=== PATIENT | female | born 1950 | race Caucasian/White ===

== ENCOUNTER → 2018-11-24 12:10 | Outpatient (CLI) | payer MEDICARE, OTHER, SELFPAY | PROVIDERS: Family Provider Family Medicine; PCP Family Medicine; Visit Provider Physician Assistant | DX: Z87.440 Personal history of urinary (tract) infections (principal) | CPT/HCPCS: 87086 ==

== ENCOUNTER 2018-11-29 16:10 | Emergency (ER) | payer MEDICARE, OTHER, SELFPAY ==
[2018-11-29 16:12] VITALS: BP 153/101; PULSE 71; RESP 16; TEMP 36.4; O2SAT 100; BMI 27.3
[2018-11-29] MEDS: ACETAMINOPHEN 325 MG TABLET 650 MG PO (16:30)
[2018-11-29] MEDS: methylPREDNISolone 125 MG/2 ML VIAL IV (16:42)
[2018-11-29] MEDS: FAMOTIDINE 20 MG/50 ML PIGGYBACK 200 MG IV (16:42)
[2018-11-29 17:00] VITALS: BP 156/64; PULSE 61; O2SAT 100
[2018-11-29 18:00] VITALS: BP 145/69; PULSE 61; RESP 16; O2SAT 100
--- NOTE | 2018-11-29 20:52 | ED.ALLEREA ---
HPI - Allergic Reaction <GRANT Christiansen - Last Filed: 11/29/18 21:32> General Chief complaint: Allergic Reaction Stated complaint: BEE STING Time Seen by Provider: 11/29/18 16:16 Source: patient Mode of arrival: ambulatory Limitations: no limitations History of Present Illness HPI narrative: This is a 67 year old female, nonsmoker, presents to ED with significant other with chief complaint of bee sting allergy. The patient reports she had an anaphylactic reaction to bee sting about 25 years ago. She had stung by a bee on left neck/upper chest area 20 minutes prior to arriving ED. She had ice pack on affected site when she arrived to ED. She denies chest pain, dyspnea, oropharyngeal edema, feeling faint, short of breath, nausea/vomiting, rash or itching. She complained of 6/10 sharp discomfort on left neck and chest area. She reports the area of the bee sting was scraped with a credit card in attempts to remove this stinger. She reports had a hornet stone on bilateral upper leg about a month ago and this caused a significant swelling. She was advised by her primary care provider that if she ever gets bee stings again, she will need to seek an emergency evaluation and treatment. She is known to have multiple allergies to medications and topical products as well and her allergy list was updated today in EMR. Related Data Home Medications Medication Instructions Recorded Confirmed amlodipine 5 mg tablet 5 mg PO DAILY 11/24/18 11/29/18 ciclesonide HFA 160 mcg/actuation 1 puff INHALATION BID 11/24/18 11/29/18 aerosol inhaler estradiol 10 mcg vaginal tablet 10 mcg VAG 2XW 11/24/18 11/29/18 levothyroxine 125 mcg tablet 125 mcg PO DAILY 11/24/18 11/29/18 omeprazole 20 mg capsule,delayed 20 mg PO DAILY 11/24/18 11/29/18 release spironolactone 25 mg tablet 25 mg PO DAILY tab 11/24/18 11/29/18 Bentyl 20 mg PO PRN PRN 11/29/18 11/29/18 ENDOGENX Of Life Women's +40 1 tab PO DAILY 11/29/18 11/29/18 [place] Vitamin D3 1,000 unit PO DAILY 11/29/18 11/29/[address] Cranrx 500 mg PO DAILY 11/29/18 11/29/18 [place] Naturals 2 tab PO DAILY 11/29/18 11/29/18 Proctocol Ortho Dophilus 2 tab PO DAILY 11/29/18 11/29/18 Solaray Calcium Magnesium Zinc 2 tab PO DAILY 11/29/18 11/29/18 Solellie B-Mikael B Stress 1 tab PO DAILY 11/29/18 11/29/18 Source Naturals C-B-R Vit C 500 mg PO DAILY 11/29/18 11/29/18 albuterol sulfate [Proventil HFA] 1 puff INHALATION PRN PRN 11/29/18 11/29/18 azelaic acid 1 applic TOPICAL BID 11/29/18 11/29/18 cetirizine [Zyrtec] 10 mg PO DAILY PRN 11/29/18 11/29/18 clindamycin phosphate 1 applic TOPICAL DIRECTED 11/29/18 11/29/18 clocortolone pivalate 1 applic TOPICAL PRN PRN 11/29/18 11/29/18 epinephrine [EpiPen] 0.3 mg IM PRN PRN 11/29/18 11/29/18 fexofenadine [Jaki Allergy] 1 tab PO PRN PRN 11/29/18 11/29/18 ipratropium bromide 1 spray INTRANASAL BID 11/29/18 11/29/18 montelukast 10 mg PO QPM PRN 11/29/18 11/29/18 pimecrolimus [Elidel] 1 applic TOPICAL BID 11/29/18 11/29/18 polyethylene glycol 3350 17 g PO PRN PRN 11/29/18 11/29/18 Previous Rx's Medication Instructions Recorded Flovent HFA 1 puff INH BID #1 inh 04/14/16 prednisone 20 mg PO BID 5 Days #10 tab 11/29/18 ranitidine HCl [Zantac] 150 mg PO DAILY #7 tab 11/29/18 Allergies Allergy/AdvReac Type Severity Reaction Status Date / Time prochlorperazine Allergy Severe Anaphylaxis Verified 11/29/18 17:51 [PROCHLORPERAZINE] Morpholine Analogues Allergy Intermediate Hives Verified 11/29/18 17:51 Sulfa (Sulfonamide Allergy Intermediate Rash Verified 11/29/18 17:51 Antibiotics) atorvastatin [ATORVASTATIN] Allergy Unknown Verified 11/24/18 12:04 clarithromycin Allergy Unknown Verified 11/24/18 12:04 [CLARITHROMYCIN] clindamycin [CLINDAMYCIN] Allergy Unknown Verified 11/24/18 12:04 codeine [CODEINE] Allergy Unknown Verified 11/24/18 12:04 diphenhydramine Allergy Unknown Verified 11/24/18 12:04 [DIPHENHYDRAMINE] diphtheria,tetanus,poliomyelitis Allergy Unknown Verified 11/24/18 12:04 va [DIP,TET,POLIO VACCINE] ezetimibe [EZETIMIBE] Allergy Unknown Verified 11/24/18 12:04 lansoprazole [LANSOPRAZOLE] Allergy Unknown Verified 11/24/18 12:04 montelukast [MONTELUKAST] Allergy Unknown Verified 11/24/18 12:04 morphine [MORPHINE] Allergy Unknown Verified 11/24/18 12:04 nitrofurantoin Allergy Unknown Verified 11/24/18 12:04 [NITROFURANTOIN] phenazopyridine Allergy Unknown Verified 11/24/18 12:04 [PHENAZOPYRIDINE] pravastatin [PRAVASTATIN] Allergy Unknown Verified 11/24/18 12:04 Tetanus Vaccines and Toxoid Allergy Unknown Verified 11/24/18 12:04 [TETANUS VACCINES & TOXOID] enalapril Allergy Verified 11/29/18 16:22 hydrochlorothiazide Allergy Verified 11/29/18 16:22 indapamide Allergy Verified 11/29/18 16:22 methylchloroisothiazolinone Allergy Verified 11/29/18 16:22 methylisothiazolinone Allergy Verified 11/29/18 16:22 neomycin Allergy Verified 11/29/18 16:22 spironolactone Allergy Verified 11/29/18 16:22 Review of Systems <GRANT Christiansen - Last Filed: 11/29/18 21:32> Review of Systems General: Denies fever, chills, fatigue, malaise, sweats. HEENT: Denies sinus pain, ear pain, sore throat, difficulty swallowing, dizziness. Respiratory: See HPI Cardiovascular: See HPI Gastrointestinal: See HPI : Denies dysuria, frequency, incontinence, hematuria, urinary retention. Musculoskeletal: Denies weakness, joint pain or bony pain. Skin: She HPI Neurologic: Denies weakness, headache, numbness, change in speech, confusion, seizures, incoordination. Psychiatric: No concerning psychosocial issues. 12-point review of systems is negative except for those stated above. PFSH <GRANT Christiansen - Last Filed: 11/29/18 21:32> Medical History HTN (hypertension) (Acute) Hypothyroidism (Acute) Surgical History History of carpal tunnel repair History of tonsillectomy History of total mastectomy Status post appendectomy Status post breast lumpectomy Status post delivery Status post hysterectomy Social History Smoking Status: Never smoker Social History Smoking Status: Never smoker Exam <GRANT Christiansen - Last Filed: 11/29/18 21:32> Narrative Exam Narrative: GEN: Alert, oriented x 3, well appearing and nourished, and in no acute distress. Head: Normal cephalic, atraumatic. No scalp or temporal tenderness, palpable mass or rash. EYES: Pupils are equal, round, and reactive to light and accommodation. Extraocular muscles are intact bilaterally. There is no subconjunctival hemorrhage, exudate and sclera non-icteric. ENT: Mucous membrane moist, no mucosal lesion. Throat without erythema, tonsillar hypertrophy or exudate. Uvula in midline, no edema, airway patent. Neck: Trachea in midline. No JVD, non-tender without lymphadenopathy. No masses or thyroid megaly. Supple, non-tender and no meningeal signs. CARDIAC: Normal regular rate and rhythm without murmurs, gallops, or rubs. No chest wall tenderness. No peripheral edema, cyanosis or pallor. Capillary refill is less than 2 seconds. RESPIRATORY: Lungs are cleat to auscultate bilaterally. No cough, wheezes, rales, or rhonchi. No stridor, respiratory distress, increase work of breathing, or accessary muscle used. ABD: Abdomen soft, nontender and non-distended. No guarding or rebound tenderness to palpate. Bowel sounds are normal in all 4 quadrants. There is no palpable masses or organomegaly. EXT: Full painless ROM of all extremities with no loss of sensation, strength, effusion or edema. SKIN: Warm, dry, normal color for patient. No erythema, lesions or rash. No bee stinger was viewed. NEUROLOGICAL: Alert and oriented to place, time and person. Sensation and motor function intact bilaterally. No facial droops, dysphasia. PSYCHIATRIC: Good judgement and reason, without hallucinations, abnormal affect or abnormal behaviors during the examination. Initial Vital Signs Initial Vital Signs: Vital Signs Temperature 97.5 F L 11/29/18 16:12 Pulse Rate 71 11/29/18 16:12 Respiratory Rate 16 11/29/18 16:12 Blood Pressure 153/101 H 11/29/18 16:12 Pulse Oximetry 100 11/29/18 16:12 <Mayo Ontiveros DO - Last Filed: 11/30/18 19:25> Initial Vital Signs Initial Vital Signs: Vital Signs Temperature 97.5 F L 11/29/18 16:12 Pulse Rate 71 11/29/18 16:12 Respiratory Rate 16 11/29/18 16:12 Blood Pressure 153/101 H 11/29/18 16:12 Pulse Oximetry 100 11/29/18 16:12 Course <GRANT Christiansen - Last Filed: 11/29/18 21:32> Orders Ordered: Discontinued Medications Acetaminophen (Tylenol) 650 mg PO NOW ONE Stop: 11/29/18 16:29 Last Admin: 11/29/18 16:30 Dose: 650 mg Acetaminophen (Tylenol) 650 mg PO NOW ONE Stop: 11/29/18 17:13 Last Admin: 11/29/18 17:17 Dose: Not Given Famotidine (Pepcid) 20 mg in 50 mls @ 200 mls/hr IV NOW ONE Stop: 11/29/18 16:43 Last Infusion: 11/29/18 16:57 Dose: 0 mls/hr Admin: 11/29/18 16:42 Dose: 200 mls/hr Methylprednisolone (Solu-Medrol 125 Mg Vial) 125 mg IV NOW ONE Stop: 11/29/18 16:29 Last Admin: 11/29/18 16:42 Dose: 125 mg Vital Signs - 8 hr 11/29/18 16:12 11/29/18 17:00 11/29/18 18:00 Temperature 97.5 F L Pulse Rate 71 61 61 Respiratory Rate 16 16 Blood Pressure 153/101 H Blood Pressure [Left Arm] 156/64 H 145/69 H Pulse Oximetry 100 100 100 <Mayo Ontiveros DO - Last Filed: 11/30/18 19:25> Orders Ordered: Discontinued Medications Acetaminophen (Tylenol) 650 mg PO NOW ONE Stop: 11/29/18 16:29 Last Admin: 11/29/18 16:30 Dose: 650 mg Acetaminophen (Tylenol) 650 mg PO NOW ONE Stop: 11/29/18 17:13 Last Admin: 11/29/18 17:17 Dose: Not Given Famotidine (Pepcid) 20 mg in 50 mls @ 200 mls/hr IV NOW ONE Stop: 11/29/18 16:43 Last Infusion: 11/29/18 16:57 Dose: 0 mls/hr Admin: 11/29/18 16:42 Dose: 200 mls/hr Methylprednisolone (Solu-Medrol 125 Mg Vial) 125 mg IV NOW ONE Stop: 11/29/18 16:29 Last Admin: 11/29/18 16:42 Dose: 125 mg Vital Signs - 8 hr 11/29/18 16:12 11/29/18 17:00 11/29/18 18:00 Temperature 97.5 F L Pulse Rate 71 61 61 Respiratory Rate 16 16 Blood Pressure 153/101 H Blood Pressure [Left Arm] 156/64 H 145/69 H Pulse Oximetry 100 100 100 [facility] - Allergic Reaction <GRANT Christiansen - Last Filed: 11/29/18 21:32> Differential Diagnosis Differential diagnosis: Likely anaphylaxis and allergic reaction Medical Records Attestation: I reviewed the patient's medical records. [facility] Narrative Medical decision making narrative: This is a 67-year-old female who had a stung by a bee on her left neck/chest area about 20 minutes ago before coming into the. Reports has some anaphylactic allergic reaction to bee sting 20 years ago. She has multiple allergies to medications including Benadryl and topical products. Usually she develops allergy reactions 1 hour after the exposures. She did not endorse any allergy symptoms when she arrived in ED but localized discomfort. Patient was medicated with IV Solu-Medrol 125 mg and Pepcid 20 mg given her past allergy histories. She also was medicated with Tylenol under 975 mg for discomfort and continued to use ice pack. She had taken Jaki after the bee stung. She was monitored for at least 2 hours in ED without exhibiting any allergy symptoms or signs. I reviewed return precautions including severe allergy symptoms with patient. She was discharged to home with 5 day course of prednisone and Zantac in addition to her allergy pill. No further questions and expressed that this time. The patient and significant other agreed to treatment plan. Discharge Plan Departure Patient Disposition: Home Clinical Impression: Allergic reaction Qualifiers: Encounter type: initial encounter Qualified Code(s): T78.40XA - Allergy, unspecified, initial encounter Discharge Date/Time: 11/29/18 18:31 Interventions: ED Discharge Assessment Last Done: 11/29/18 18:30 Instructions: DI for Anaphylaxis Activity Restrictions/Additional Instructions: You have been diagnosed with [bee sting allergic reaction and history of anaphylactic allergy ]. What to do: *Take your medications as directed. The prednisone can bring her blood sugar elevated could upset her stomach. *Follow up with your primary care provider in 2-3 days, call for an appointment. Let them know you were seen in the ED and that we asked you to be seen in follow up. *Return to ED if you have any new, worsening, or concerning symptoms, such as [swelling to her lips, throat, tongue, difficulty breathing, chest pain, short of breath, nausea/vomiting, fainting]. Prescriptions: New prednisone 20 mg tablet 20 mg PO BID 5 Days Qty: 10 RF: 0 ranitidine HCl [Zantac] 150 mg tablet 150 mg PO DAILY Qty: 7 RF: 0 No Action levothyroxine [Synthroid] 125 mcg tablet 125 mcg PO DAILY RF: 0 amlodipine 5 mg tablet 5 mg PO DAILY RF: 0 spironolactone 25 mg tablet 25 mg PO DAILY RF: 0 omeprazole 20 mg capsule,delayed release(DR/EC) 20 mg PO DAILY RF: 0 [place] 160 mcg/actuation HFA aerosol inhaler 1 puff INHALATION BID RF: 0 estradiol [Yuvafem] 10 mcg tablet 10 mcg VAG 2XW RF: 0 Flovent HFA 12 GM HFA aerosol inhaler 1 puff INH BID Qty: 1 RF: 1 albuterol sulfate [Proventil HFA] 90 mcg/actuation Hfa Aerosol Inhaler 1 puff INHALATION PRN PRN (Reason: Shortness Of Breath) RF: 0 clindamycin phosphate 1 % Solution 1 applic TOPICAL DIRECTED RF: 0 azelaic acid 15 % Gel 1 applic topical BID RF: 0 polyethylene glycol 3350 17 gram Powder In Packet 17 g PO PRN PRN (Reason: Constipation) RF: 0 Bentyl 20 mg 20 mg PO PRN PRN (Reason: IBS) RF: 0 [place] [employer] [place] Women's +40 1 tab PO DAILY RF: 0 [place] Vitamin D3 1,000 unit 1,000 unit PO DAILY RF: [address] Cranrx 500 mg 500 mg PO DAILY RF: 0 [place] Naturals 2 tab PO DAILY RF: 0 Proctocol Ortho Dophilus 2 tab PO DAILY RF: 0 Solaray Calcium Magnesium Zinc 1,000 mg 2 tab PO DAILY RF: 0 [place] B-Mikael B Stress 1 tab PO DAILY RF: 0 Source Naturals C-B-R Vit C 500 mg 500 mg PO DAILY RF: 0 ipratropium bromide 0.03 % [place],Non-Aerosol 1 spray intranasal BID RF: 0 fexofenadine [Jaki Allergy] 60 mg Tablet 1 tab PO PRN PRN (Reason: Allergy Symptoms) RF: 0 cetirizine [Zyrtec] 10 mg Tablet 10 mg PO DAILY PRN (Reason: Allergy Symptoms) RF: 0 pimecrolimus [Elidel] 1 % Cream 1 applic TOPICAL BID RF: 0 clocortolone pivalate 0.1 % Cream 1 applic TOPICAL PRN PRN (Reason: bug bites) RF: 0 montelukast 10 mg Tablet 10 mg PO QPM PRN (Reason: Allergy Symptoms) RF: 0 epinephrine [EpiPen] 0.3 mg/0.3 mL Auto-Injector 0.3 mg IM PRN PRN (Reason: Allergic Reaction) RF: 0 Referrals: Gifty Bazan DO [Primary Care Provider] - <Mayo Ontiveros DO - Last Filed: 11/30/18 19:25> Cosign ED Attending Cosleonelature Attestation: I was available for consultation during this patient's emergency department encounter
== END 2018-11-29 18:31 | disposition home or self-care (01) ==
PROVIDERS: Emergency Provider Nurse Practitioner Family; Family Provider Family Medicine; PCP Family Medicine
DX: T63.441A Toxic effect of venom of bees, accidental (unintentional), initial encounter (principal)
CPT/HCPCS: 96374; 96375; 99283; 99284; J2930

== ENCOUNTER → 2019-03-20 14:57 | Outpatient (CLI) | payer MEDICARE, OTHER, SELFPAY | PROVIDERS: Family Provider Family Medicine; PCP Family Medicine; Visit Provider Nurse Practitioner | DX: R30.0 Dysuria (principal) | CPT/HCPCS: 87077; 87086; 87186 ==

== ENCOUNTER → 2021-04-14 12:02 | Outpatient (CLI) | payer MEDICARE, OTHER, SELFPAY ==
--- NOTE | 2021-04-14 12:06 | DI.RAD.S_ITS ---
PROCEDURE: XR TOE LT MIN 2V INDICATIONS: painful, swollen fourth toe TECHNIQUE: 3 views of the left toe(s) acquired. COMPARISON: None. FINDINGS: Bones: No fractures or dislocations. No suspicious bony lesions. Generalized decrease in osseous mineralization noted. 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 Calcaneal posterior and plantar spurs present. Soft tissues: No suspicious soft tissue densities. IMPRESSION: Soft tissue swelling without fracture or foreign body involving the 4th toe. Degenerative changes Approved by: Andrea Orozco M.D. on 04/14/2021 at 11:54
== END ==
PROVIDERS: Family Provider Family Medicine; PCP Family Medicine; Referring Provider Physician Assistant; Visit Provider Physician Assistant
DX: M79.675 Pain in left toe(s) (principal); M77.32 Calcaneal spur, left foot; M79.89 Other specified soft tissue disorders
CPT/HCPCS: 73660

== ENCOUNTER 2023-02-27 09:31 | Emergency (ER) | payer MEDICARE, OTHER, SELFPAY ==
[2023-02-27 09:40] VITALS: BP 195/78; PULSE 63; RESP 18; TEMP 36.7; O2SAT 99
[2023-02-27 09:46] VITALS: PULSE 69; O2SAT 98
[2023-02-27 09:47] VITALS: BP 195/78; PULSE 66; O2SAT 98
--- NOTE | 2023-02-27 09:51 | DI.RAD.S_ITS ---
PROCEDURE: XR KNEE LT 3V INDICATIONS: injury TECHNIQUE: 3 views of the knee were acquired. COMPARISON: None. FINDINGS: Bones: No fractures or dislocations. No suspicious bony lesions. Mild tricompartmental periarticular osteophyte formation. Soft tissues: No joint effusion. No suspicious soft tissue calcifications. IMPRESSION: Osteoarthritis. No acute fracture. No osseous lesion. If symptoms and/or clinical suspicion for pathology persist, further assessment with repeat, or advanced imaging (e.g., CT, MRI, or bone scan) may be helpful for further assessment. Dictated by: Ana Mccullough M.D. on 02/27/2023 at 10:09 Approved by: Ana Mccullough M.D. on 02/27/2023 at 10:09
[2023-02-27 10:00] VITALS: PULSE 61; O2SAT 98
[2023-02-27 10:30] VITALS: PULSE 60; O2SAT 97
--- NOTE | 2023-02-27 10:57 | ED.LOWEXIN ---
HPI - Extremity Injury (Lower) General Chief Complaint: Extremity Injury, Lower Stated Complaint: fell ysterday hurt RT foot & arm/LT knee Time Seen by Provider: 02/27/23 10:21 Source: patient and family Mode of arrival: Family Vehicle History of Present Illness HPI Narrative: Patient 72-year-old female history of multiple allergies hypertension presenting after mechanical ground level fall yesterday. Reports that she was wearing her bifocals in the garden she went to take a step when she tripped. She is really having significant left knee pain. She is able to bear weight but she reports that she can not bend it. She is got some pain in her right ankle and pain on her elbow as well. She is not hit her head or lose consciousness. She is not on antiplatelet or anticoagulation medication. She has multiple allergies and takes Tylenol only for pain. Related Data Home Medications Medication Instructions Recorded Confirmed amlodipine 5 mg tablet 5 mg PO DAILY 11/24/18 02/10/22 ciclesonide 160 mcg/actuation 1 puff inhalation BID 11/24/18 02/10/22 aerosol inhaler (Alvesco) estradiol 10 mcg vaginal tablet 10 mcg vaginal 2XW 11/24/18 02/10/22 (Yuvafem) levothyroxine 125 mcg tablet 125 mcg PO DAILY 11/24/18 02/10/22 (Synthroid) omeprazole 20 mg capsule,delayed 20 mg PO DAILY 11/24/18 02/10/22 release spironolactone 25 mg tablet 25 mg PO DAILY 11/24/18 02/10/22 Bentyl 20 mg PO PRN PRN IBS 11/29/18 02/10/22 [employer] Women's +40 1 tab PO DAILY 11/29/18 02/10/22 [place] Vitamin D3 1,000 unit PO DAILY 11/29/18 02/10/[address] Cranrx 500 mg PO DAILY 11/29/18 02/10/22 Hernandez Naturals 2 tab PO DAILY 11/29/18 02/10/22 Proctocol Ortho Dophilus 2 tab PO DAILY 11/29/18 02/10/22 Solaray Calcium Magnesium Zinc 2 tab PO DAILY 11/29/18 02/10/22 Solray B-Mikael B Stress 1 tab PO DAILY 11/29/18 02/10/22 Source Naturals C-B-R Vit C 500 mg PO DAILY 11/29/18 02/10/22 albuterol sulfate 90 mcg/actuation 1 puff inhalation PRN PRN 11/29/18 02/10/22 aerosol inhaler (Proventil HFA) Shortness Of Breath azelaic acid 15 % topical gel 1 applic topical BID 11/29/18 02/10/22 cetirizine 10 mg tablet (Zyrtec) 10 mg PO DAILY PRN Allergy Symptoms 11/29/18 02/10/22 clindamycin phosphate 1 % topical 1 applic topical DIRECTED 11/29/18 02/10/22 solution clocortolone pivalate 0.1 % 1 applic topical PRN PRN bug bites 11/29/18 02/10/22 topical cream epinephrine 0.3 mg/0.3 mL 0.3 mg IM PRN PRN Allergic Reaction 11/29/18 02/10/22 injection, auto-injector (EpiPen) fexofenadine 60 mg tablet (Jaki 1 tab PO PRN PRN Allergy Symptoms 11/29/18 02/10/22 Allergy) ipratropium bromide 21 mcg (0.03 1 spray intranasal BID 11/29/18 02/10/22 %) nasal spray montelukast 10 mg tablet 10 mg PO QPM PRN Allergy Symptoms 11/29/18 02/10/22 pimecrolimus 1 % topical cream 1 applic topical BID 11/29/18 02/10/22 (Elidel) polyethylene glycol 3350 17 gram 17 g PO PRN PRN Constipation 11/29/18 02/10/22 oral powder packet Previous Rx's Medication Instructions Recorded fluticasone propionate 220 1 puff INH BID #1 inh 04/14/ mcg/actuation HFA aerosol inhaler (Flovent HFA) ranitidine HCl 150 mg tablet 150 mg PO DAILY #7 tabs 11/29/18 (Zantac) Allergies Allergy/AdvReac Type Severity Reaction Status Date / Time prochlorperazine Allergy Severe Anaphylaxis Verified 02/10/22 12:30 [PROCHLORPERAZINE] bee venom protein (honey bee) Allergy Intermediate Localized Verified 02/10/22 12:30 swelling, pain Morpholine Analogues Allergy Intermediate Hives Verified 02/10/22 12:30 Sulfa (Sulfonamide Allergy Intermediate Rash Verified 02/10/22 12:30 Antibiotics) atorvastatin [ATORVASTATIN] Allergy Unknown Verified 02/10/22 12:30 clarithromycin Allergy Unknown Verified 02/10/22 12:30 [CLARITHROMYCIN] clindamycin [CLINDAMYCIN] Allergy Unknown Verified 02/10/22 12:30 codeine [CODEINE] Allergy Unknown Verified 02/10/22 12:30 diphenhydramine Allergy Unknown Verified 02/10/22 12:30 [DIPHENHYDRAMINE] diphtheria,tetanus,poliomyelitis Allergy Unknown Verified 02/10/22 12:30 va [DIP,TET,POLIO VACCINE] ezetimibe [EZETIMIBE] Allergy Unknown Verified 02/10/22 12:30 lansoprazole [LANSOPRAZOLE] Allergy Unknown Verified 02/10/22 12:30 legumes Allergy Unknown Verified 02/10/22 12:30 montelukast [MONTELUKAST] Allergy Unknown Verified 02/10/22 12:30 morphine [MORPHINE] Allergy Unknown Verified 02/10/22 12:30 nitrofurantoin Allergy Unknown Verified 02/10/22 12:30 [NITROFURANTOIN] phenazopyridine Allergy Unknown Verified 02/10/22 12:30 [PHENAZOPYRIDINE] pravastatin [PRAVASTATIN] Allergy Unknown Verified 02/10/22 12:30 Tetanus Vaccines and Toxoid Allergy Unknown Verified 02/10/22 12:30 [TETANUS VACCINES & TOXOID] enalapril Allergy Verified 02/10/22 12:30 hydrochlorothiazide Allergy Verified 02/10/22 12:30 indapamide Allergy Verified 02/10/22 12:30 methylchloroisothiazolinone Allergy Verified 02/10/22 12:30 methylisothiazolinone Allergy Verified 02/10/22 12:30 neomycin Allergy Verified 02/10/22 12:30 spironolactone Allergy Verified 02/10/22 12:30 nut Allergy Unknown Uncoded 02/10/22 12:30 Patient History Medical History (Updated 02/27/23 @ 11:13 by Moraima Evans DO) Hypothyroidism HTN (hypertension) Surgical History History of total mastectomy Status post breast lumpectomy History of carpal tunnel repair Status post hysterectomy Status post delivery Status post appendectomy History of tonsillectomy Social History (Reviewed 11/29/18 @ 21:01 by CRIS Christiansen Smoking Status: Never smoker Smoking Status: Never smoker alcohol intake frequency: holidays/special occasions only Substance Use Type: does not use Exam Initial Vital Signs Initial Vital Signs: Vital Signs Temperature 98.0 F 02/27/23 09:40 Pulse Rate 63 02/27/23 09:40 Respiratory Rate 18 02/27/23 09:40 Blood Pressure 195/78 H 02/27/23 09:40 Pulse Oximetry 99 02/27/23 09:40 Oxygen Delivery Method Room Air 02/27/23 09:40 GENERAL: Alert pleasant 72-year-old female HEENT: Head atraumatic,EOMI, pupils reactive, face symmetric, moist mucous membranes CARDIOVASCULAR: Regular rate and rhythm without murmurs, rubs or gallops. RESPIRATORY: Breath sounds equal bilaterally, no wheezes rales or rhonchi. ABDOMEN: Soft, nontender. Normoactive bowel sounds all 4 quadrants. No guarding or rebound. EXTREMITIES: Normal range of motion, no clubbing or edema. Neurovascularly intact Left lower extremity knee mildly swollen distal pedal pulse is present decreased range of motion secondary to pain. Right lower extremity contusion noted over right ankle however minimal swelling good range of motion of ankle distal pedal pulses present foot is nontender Right elbow contusion full range of motion mother deformity NEUROLOGICAL: Alert and oriented x4.Normal gait and speech. Cranial nerves II through XII grossly intact. Good [id number], good [id number], strength equal bilaterally, no dysarthria or aphasia, sensation in tact to soft touch bilaterally, no visual changes, no facial droop SKIN: Warm, dry, no laceration, no petechiae, no rashes or lesions. Course Orders Ordered: ED Orders 02/27/23 09:51 XR knee LT 3V Stat Vital Signs Vital signs: Vital Signs - 8 hr 02/27/23 09:40 02/27/23 09:46 02/27/23 09:47 Temperature 98.0 F Pulse Rate 63 69 66 Respiratory Rate 18 Blood Pressure 195/78 H Pulse Oximetry 99 98 98 Oxygen Delivery Method Room Air 02/27/23 09:47 02/27/23 10:00 02/27/23 10:30 Temperature Pulse Rate 61 60 Respiratory Rate Blood Pressure 195/78 H Pulse Oximetry 98 97 Oxygen Delivery Method MDM - Extremity Injury (Lower) Imaging Data Extremity x-ray #1: Radiologist's Impression: PROCEDURE: XR KNEE LT 3V INDICATIONS: injury TECHNIQUE: 3 views of the knee were acquired. COMPARISON: None. FINDINGS: Bones: No fractures or dislocations. No suspicious bony lesions. Mild tricompartmental periarticular osteophyte formation. Soft tissues: No joint effusion. No suspicious soft tissue calcifications. IMPRESSION: Osteoarthritis. No acute fracture. No osseous lesion. If symptoms and/or clinical suspicion for pathology persist, further assessment with repeat, or advanced imaging (e.g., CT, MRI, or bone scan) may be helpful for further assessment. Dictated by: Ana Mccullough M.D. on 02/27/2023 at 10:09 [facility] Narrative Medical decision making narrative: Well-appearing 72-year-old female who presents after mechanical fall with left knee pain decreased range of motion. X-ray is negative. She is given knee immobilizer instructed to follow-up. She is offered other medication but reports she only wants Tylenol. She is bruising on other extremities but no gross bony deformities she is ambulating no need for imaging Discharge Plan Departure Patient Disposition: Home Clinical Impression: Left knee sprain Instructions: DI for Knee Sprain Activity Restrictions/Additional Instructions: *You have been diagnosed with left knee sprain *What to do: At this time wear knee brace as tolerated elevate and ice. May weight bear as tolerated. He may require outpatient MRI if still having pain decreased range of motion in a couple of weeks *Continue to take medications as directed *Follow up with your primary care provider in 2-3 days or call [phone] *Return to ER if you should have increasing pain numbness tingling weakness or any new, worsening or concerning symptoms Prescriptions: No Action levothyroxine [Synthroid] 125 mcg tablet 125 mcg PO DAILY amlodipine 5 mg tablet 5 mg PO DAILY spironolactone 25 mg tablet 25 mg PO DAILY omeprazole 20 mg capsule,delayed release(DR/EC) 20 mg PO DAILY Alvesco 160 mcg/actuation HFA aerosol inhaler 1 puff INHALATION BID estradiol [Yuvafem] 10 mcg tablet 10 mcg VAG 2XW Patient Comments: not on home medication list provided Flovent HFA 12 GM HFA aerosol inhaler 1 puff INH BID Qty: 1 1RF albuterol sulfate [Proventil HFA] 90 mcg/actuation Hfa Aerosol Inhaler 1 puff INHALATION PRN PRN (Reason: Shortness Of Breath) clindamycin phosphate 1 % Solution 1 applic TOPICAL DIRECTED azelaic acid 15 % Gel 1 applic topical BID polyethylene glycol 3350 17 gram Powder In Packet 17 g PO PRN PRN (Reason: Constipation) Bentyl 20 mg 20 mg PO PRN PRN (Reason: IBS) [employer] Women's +40 1 tab PO DAILY [place] Vitamin D3 1,000 unit 1,000 unit PO DAILY [address] Cranrx 500 mg 500 mg PO DAILY Patient Comments: Bioactive cranberry Hernandez Naturals 2 tab PO DAILY Patient Comments: Pro EFA 270/EPA/180DHA/70GLA Proctocol Ortho Dophilus 2 tab PO DAILY Solaray Calcium Magnesium Zinc 1,000 mg 2 tab PO DAILY Solray B-Mikael B Stress 1 tab PO DAILY Source Naturals C-B-R Vit C 500 mg 500 mg PO DAILY ipratropium bromide 0.03 % [place],Non-Aerosol 1 spray intranasal BID fexofenadine [Jaki Allergy] 60 mg Tablet 1 tab PO PRN PRN (Reason: Allergy Symptoms) Patient Comments: or zyrtec cetirizine [Zyrtec] 10 mg Tablet 10 mg PO DAILY PRN (Reason: Allergy Symptoms) Patient Comments: or Jaki pimecrolimus [Elidel] 1 % Cream 1 applic TOPICAL BID clocortolone pivalate 0.1 % Cream 1 applic TOPICAL PRN PRN (Reason: bug bites) montelukast 10 mg Tablet 10 mg PO QPM PRN (Reason: Allergy Symptoms) epinephrine [EpiPen] 0.3 mg/0.3 mL Auto-Injector 0.3 mg IM PRN PRN (Reason: Allergic Reaction) ranitidine HCl [Zantac] 150 mg tablet 150 mg PO DAILY Qty: 7 0RF Referrals: Miscellaneous,Doctor, MD [Primary Care Provider] - Stand Alone Forms: Patient Portal/API
== END 2023-02-27 11:39 | disposition home or self-care (01) ==
PROVIDERS: Emergency Provider Emergency Medicine; Family Provider Family Medicine
DX: S83.92XA Sprain of unspecified site of left knee, initial encounter (principal); W01.0XXA Fall on same level from slipping, tripping and stumbling without subsequent striking against object, initial encounter; Y92.89 Other specified places as the place of occurrence of the external cause
CPT/HCPCS: 73562; 99283